=== PATIENT | male | born 1985 | race Caucasian/White ===

== ENCOUNTER 2022-02-01 13:01 | Emergency (ER) | payer OTHER, SELFPAY ==
--- NOTE | ~2022-02-01 | XR_ITS ---
EXAMINATION: XR HAND, LEFT CLINICAL INFORMATION: Trauma COMPARISON: None TECHNIQUE: Three-view left hand FINDINGS: There is no evidence of acute fracture or dislocation of the left hand. Joint spaces are maintained. There is gauze overlying the thenar eminence and evaluation of possible radial opaque foreign body is limited however no definite radiopaque foreign body is appreciated. XR/XR hand LT min 3V IMPRESSION: No significant bony abnormality of the left hand identified.
[2022-02-01 13:06] VITALS: BP 128/71; PULSE 72; RESP 16; TEMP 36.9; O2SAT 98; BMI 22.9
[2022-02-01] MEDS: Diphth,Pertus(ACell),Tet Adult 0.5 ML SYRINGE IM (13:28)
[2022-02-01] MEDS: Lidocaine HCl 2 % MPF 5 ML VIAL INFILTRATI (13:29)
--- NOTE | 2022-02-01 13:37 | ED_ITS ---
HPI - Wound/Laceration General Chief Complaint: Wound/Laceration Stated Complaint: hand lac - work related Time Seen by Provider: 02/01/22 13:17 Source: patient Mode of arrival: ambulatory Limitations: no limitations History of Present Illness HPI narrative: 36 y/o male presents to the ER with a bleeding cut to his left palm that he sustained at work just prior to arrival. He was trying to unclog a large paper shredder with a crowbar when the end of it snapped and his hand went right into the metal bar. He states the metal punctured his left palm and caused a deep laceration. He could not get the bleeding to stop so he applied a pressure dressing a came to the ER for further evaluation. He is right-hand dominant. He is unsure when his last tetanus shot was. He denies any numbness, weakness, tingling. He has been taking ibuprofen but is not on any anticoagulation. Onset (ago): minute(s) Extremity Location: left: hand (thenar eminence) Place: work Patient tetanus UTD: No Context: accidental Associated symptoms: pain Treatments prior to arrival: bandage Related Data Allergies Allergy/AdvReac Type Severity Reaction Status Date / Time azithromycin Allergy Difficulty Verified 02/01/22 13:11 Breathing Iodinated Contrast Media Allergy Difficulty Verified 02/01/22 13:11 [Contrast Dye] Breathing Penicillins [PCN] Allergy Difficulty Verified 02/01/22 13:11 Breathing Review of Systems Review of Systems: Constitutional: No Fever, No Chills Cardiovascular: No Chest Pain, No SOB Gastrointestinal: + Nausea, No Vomiting Musculoskeletal: No joint pain, No Myalgias Skin: + Skin Lesions, No rash Neuro: No Weakness, No Numbness, No Dizziness Psych: + Anxiety/Panic Heme/Lymph: No Bruising PMFSH Social History Social History Advance Directives: No Advance Directives Information Provided: Yes Physical Exam Vital Signs: Vital Signs: Last Vital Signs Temp 98.4 F 02/01/22 13:06 Pulse 72 02/01/22 13:06 Resp 16 02/01/22 13:06 BP 128/71 02/01/22 13:06 Pulse Ox 98 02/01/22 13:06 BMI result Body Mass Index 22.9 Appearance: Alert. Oriented X3. No acute distress. HEENT: normal inspection CVS: Normal heart rate and rhythm. Pulses normal. Respiratory: No respiratory distress. Skin: Skin warm and dry. Normal skin color. Normal skin turgor. No rashes. Extremities: Left thenar eminence with a 3 cm linear deep laceration with active oozing. Deep structures intact. Normal range of motion and sensation of the thumb. 3+ cap refill. Normal hand grasp bilaterally. Neuro: Oriented X 3. No motor deficit. No sensory deficit. Course Course Course Narrative: 36-year-old male presents to the ER with a laceration to his left palm, located the thenar eminence after he punctured it with a metal blade at work just prior to arrival. Active oozing on arrival. No numbness, weakness, tingling. He is neurovascularly intact distally and has full range of motion of the thumb. Compression dressing applied and x-ray ordered. Will need suture closure. Reevaluation(s) Reevaluation #1: X-ray negative. 5 sutures placed with good wound margin approximation. Pt javier erated well. Wound care discussed with patient. He is stable for discharge home. He will follow-up with [facility]. Procedures Laceration Laceration 1: Site: hand Side (If applicable): left Size (cm): 3 Description: linear Depth: simple, single layer Local Anesthetic: lidocaine 2% Amount of anesthesia used (mL): 4 Pre-repair: wound explored, irrigated extensively and deep structures intact Skin layer closed with: nylon Size (cm): 4-0 Number of sutures: 5 Technique: simple, interrupted Discharge Plan Discharge Clinical Impression: Laceration Patient Disposition: Home, Self-Care Instructions: Laceration (DC) Additional Instructions: Your x-ray today was normal. 5 sutures were used to close your wound. You will need your stitches out in 7 days. See you doctor for this or come back to the ER and we will remove them. Do not get wet for 24 hours, after that you can briefly wash with soap and water then pat dry. Use bacitracin 2x per day. Keep wound clean and covered. Do not submerge in water, no swimming, no dishes. If you develop signs of infection including increased pain, swelling, redness or drainage of pus come back to the ER for further evaluation. Referrals: [facility] [Provider Group] - 2 days Stand Alone Forms: Work/School Release
== END 2022-02-01 15:05 | disposition home or self-care (01) ==
PROVIDERS: Emergency Provider Emergency Medicine; PCP Nurse Practitioner Family
DX: S61.412A Laceration without foreign body of left hand, initial encounter (principal); M79.642 Pain in left hand; W26.9XXA Contact with unspecified sharp object(s), initial encounter; Y93.9 Activity, unspecified; Y92.9 Unspecified place or not applicable; Y99.0 Civilian activity done for income or pay; Z79.899 Other long term (current) drug therapy
CPT/HCPCS: 12002; 73130; 90471; 90715; 99283; 99284

== ENCOUNTER → 2022-02-02 10:06 | Outpatient (BNVA) | payer OTHER, SELFPAY | PROVIDERS: PCP Nurse Practitioner Family; Visit Provider Physician Assistant | DX: S61.412A Laceration without foreign body of left hand, initial encounter (principal); W22.8XXA Striking against or struck by other objects, initial encounter | CPT/HCPCS: 99203 ==

== ENCOUNTER → 2022-02-06 11:47 | Outpatient (BNVA) | payer OTHER, SELFPAY | PROVIDERS: PCP Nurse Practitioner Family; Visit Provider Physician Assistant Medical | DX: S61.412A Laceration without foreign body of left hand, initial encounter (principal); W22.8XXA Striking against or struck by other objects, initial encounter | CPT/HCPCS: 99213 ==

== ENCOUNTER → 2022-02-07 12:24 | Outpatient (BNVA) | payer OTHER, SELFPAY | PROVIDERS: PCP Nurse Practitioner Family; Visit Provider Orthopaedic Surgery | DX: S61.412A Laceration without foreign body of left hand, initial encounter (principal) | CPT/HCPCS: 99202 ==

== ENCOUNTER → 2022-02-09 13:04 | Outpatient (BNVA) | payer OTHER, SELFPAY | PROVIDERS: PCP Nurse Practitioner Family; Visit Provider Physician Assistant | DX: S61.412A Laceration without foreign body of left hand, initial encounter (principal); W26.9XXA Contact with unspecified sharp object(s), initial encounter; T81.30XA Disruption of wound, unspecified, initial encounter; Z48.02 Encounter for removal of sutures | CPT/HCPCS: 99212; 99213 ==

== ENCOUNTER → 2022-02-15 13:20 | Outpatient (BNVA) | payer OTHER, SELFPAY | PROVIDERS: PCP Nurse Practitioner Family; Visit Provider Physician Assistant Medical | DX: S61.412A Laceration without foreign body of left hand, initial encounter (principal); W26.9XXA Contact with unspecified sharp object(s), initial encounter | CPT/HCPCS: 99213 ==

== ENCOUNTER → 2022-03-02 09:25 | Outpatient (BNVA) | payer OTHER, SELFPAY | PROVIDERS: PCP Nurse Practitioner Family; Visit Provider Physician Assistant | DX: S61.412D Laceration without foreign body of left hand, subsequent encounter (principal); X58.XXXD Exposure to other specified factors, subsequent encounter | CPT/HCPCS: 99213 ==